=== PATIENT | male | born 1990 | race Native Hawaiian/Other Pacific Islander ===

== ENCOUNTER 2016-10-17 14:57 | Emergency (ER) | payer OTHER ==
--- NOTE | 2016-10-17 15:32 | RAD ---
Exam: Three-view left ankle COMPARISON: None INDICATION: Twisted ankle a week ago. Findings: AP, lateral and oblique views of the left ankle were obtained. Soft tissue swelling is seen laterally. There is no joint effusion. No fracture or periosteal reaction is identified. Ankle mortise is intact. IMPRESSION: Lateral soft tissue swelling, however no acute osseous abnormality is identified in the left ankle.
[2016-10-17] MEDS ORDERED: IBUPROFEN 800 MG TABLET ONE (15:47)
== END 2016-10-17 16:08 | disposition home or self-care (01) ==
LOC: ED 14:57
DX: S93.402A Sprain of unspecified ligament of left ankle, initial encounter (principal); X58.XXXA Exposure to other specified factors, initial encounter; Y93.67 Activity, basketball; Y92.310 Basketball court as the place of occurrence of the external cause
CPT/HCPCS: 73610; 99284; 99283; A9270